=== PATIENT | male | born 1995 | race Caucasian/White ===

== ENCOUNTER 2021-12-06 02:54 | Emergency (ER) | payer SELFPAY ==
[~2021-12-06] VITALS: Ht 162.6 cm; Wt 54.4 kg
--- NOTE | 2021-12-06 03:28 | NUR ---
PATIENT BIB MOTHER FOR C/O VOMITING BLOOD, BUT UNABLE TO PROVIDE US WITH PROPER HISTORY. AOX3. NO SOB/ LABORED BREATHING. AFEBRILE. DENIES CP/PRESSURE. HX OF DRUG ABUSE. PT ADMITTED TO USING METH. VSS.
--- NOTE | 2021-12-06 03:30 | NUR ---
DR LO AT BEDSIDE FOR MSE.
[2021-12-06] MEDS ORDERED: FAMOTIDINE. 20 MG/2 ML VIAL IV ONE ×2 (03:45→04:10)
[2021-12-06] MEDS ORDERED: PANTOPRAZOLE SODIUM 40 MG VIAL ONE (04:06)
[2021-12-06 04:25] LABS: MEAN CORPUSCULAR HEMOGLOBIN 29.6 uug (23.8-33.4); MEAN CORPUSCULAR VOLUME 87.1 fL (73.0-96.2); PLATELET COUNT (AUTO) 263 K/uL (152-348)
--- NOTE | 2021-12-06 04:30 | NUR ---
PT BECAME AGITATED AND AGGRESSIVE. ATTEMPTED TO LEAVE FACILITY. ATTEMPTED TO DESCULATE THE SITUATION BY PROVIDING PT WITH CALM ENVIRONMENT AND DECREASED STIMULI, TRIED TO EDUCATE PT BUT UNSUCCESSFUL. INITIATED LITA ROYAL. MD TOM, NURSES AT BEDSIDE.
[2021-12-06 04:31] LABS: BILIRUBIN,DIRECT 0.1 mg/dL (0.0-0.2); BILIRUBIN,TOTAL 0.9 mg/dL (0.2-1.0); CREATININE 0.9 mg/dL (0.6-1.3); POTASSIUM 4.8 mmol/L (3.5-5.1); TOTAL PROTEIN, SERUM 8.2 g/dL (6.4-8.2)
[2021-12-06 04:35] LABS: ETHANOL < 3 MG/DL (0-0)
[2021-12-06] MEDS ORDERED: LORAZEPAM 2 MG/1 ML VIAL IM ONE (04:45)
[2021-12-06] MEDS ORDERED: HALOPERIDOL LACTATE 5 MG/1 ML VIAL IM ONE (04:45)
[2021-12-06] MEDS ORDERED: diphenhydrAMINE 50 MG/1 ML VIAL IV ONE (04:45)
[2021-12-06] MEDS ORDERED: HALOPERIDOL LACTATE 5 MG/1 ML VIAL ONE (04:46)
[2021-12-06] MEDS ORDERED: LORAZEPAM 2 MG/1 ML VIAL ONE (04:47)
[2021-12-06] MEDS ORDERED: diphenhydrAMINE 50 MG/1 ML VIAL ONE (04:51)
[2021-12-06] MEDS ORDERED: KETAMINE HCL 500 MG/10 ML INJ IM ONE (05:00)
[2021-12-06] MEDS ORDERED: IV NS 1000 ML 1,000 ML IV ONE (05:00)
[2021-12-06] MEDS ORDERED: KETAMINE HCL 500 MG/10 ML INJ ONE (05:02)
--- NOTE | 2021-12-06 05:27 | NUR ---
Patient is resting comfortably in bed with eyes closed. Breathing even and unlabored. VSS
[2021-12-06 05:33] LABS: ACETAMINOPHEN < 2.0 ug/mL (10-30)
[2021-12-06 05:38] LABS: THYROID STIMULATING HORMONE 0.314 mIU/mL (0.358-3.740)
--- NOTE | 2021-12-06 07:09 | NUR ---
PT IS RESTING IN BED COMFORTABLY. NO S/S OF DISTRESS. CONTINUE TO MONITOR THE PT.
[2021-12-06 08:48] VITALS: BP 125/78
--- NOTE | 2021-12-06 08:49 | NUR ---
PT WAS D/C'd TO HOME. D/C INSTRUCTIONS GIVEN TO THE PT BY DR LO.
== END 2021-12-06 08:50 | disposition home or self-care (01) ==
LOC: ER 03:03
DX: R11.10 Vomiting, unspecified (principal); Z59.00 Homelessness unspecified
CPT/HCPCS: 36415; 80048; 80076; 80299; 80307; 80320; 82550; 83690; 84443; 85025; 85730; 86850; 86900; 86901; 93005; 96361; 96372 ×3; 96374; 96375; 99284; C9113; J1200; J1630; J2060; J3490 ×2; A4663; G0480; J7030